=== PATIENT | female | born 1940 | race Caucasian/White ===

== ENCOUNTER 2016-11-07 08:07 | Day surgery (SDC) | payer OTHER ==
[~2016-11-07] VITALS: Ht 160 cm; Wt 96.0 kg
[~2016-11-07 08:07] MED LIST: ALENDRONATE SOD70 MG PO; DAILY VALUE1 EACH PO; FLOVENT DISKUS1 DISK IH; GARLIC1000 MG PO; GERD MED PO; HYDROCHLOROTHIA25 MG PO; LEVOTHYROXINE125 MCG PO; LISINOPRIL5 MG PO; LO-DOSE ASPIRIN81 M2 PO; TOPROL XL25 MG PO; VENTOLIN HFA18 GM IH
== END 2016-11-07 10:30 | disposition home or self-care (01) ==
LOC: CATH 08:07
DX: C50.912 Malignant neoplasm of unspecified site of left female breast (principal); I87.8 Other specified disorders of veins; J44.9 Chronic obstructive pulmonary disease, unspecified; J45.909 Unspecified asthma, uncomplicated; I10 Essential (primary) hypertension; Z79.82 Long term (current) use of aspirin; Z82.49 Family history of ischemic heart disease and other diseases of the circulatory system
CPT/HCPCS: C1751; C1894; J0690; J1644; J2250; J3010; S0020

== ENCOUNTER 2017-01-30 15:40 | Emergency (ER) | payer OTHER ==
[~2017-01-30] VITALS: Ht 160 cm; Wt 93.2 kg
[~2017-01-30 15:40] MED LIST changes: +LASIX20 MG PO; +RANITIDINE HCL150 MG PO
[2017-01-30 16:47] LABS: EOSINOPHIL (%) 0.6 % (0-5); EOSINOPHIL COUNT 0.1 K/uL (0-0.3); HEMATOCRIT 37.6 % (36.0-46.0); IMMATURE GRANULOCYTE (%) 0.5 % (0.0-0.7); IMMATURE GRANULOCYTE COUNT 0.1 K/uL; INSTRUMENT ABS NEUTROPHIL CT 5.2 K/uL; LYMPHOCYTE COUNT 3.3 K/uL (1.0-2.8); MONOCYTE (%) 8.7 % (3-12); MONOCYTE COUNT 0.8 K/uL (0-0.8); NEUTROPHIL (%) 55.3 % (45-76); NEUTROPHIL COUNT 5.2 K/uL (1.8-6.4); PLATELET COUNT 254 K/uL (156-360); RBC DIS.WIDTH-CV 14.6 % (11.8-14.6); RBC DIS.WIDTH-SD 50.5 % (39-53); WHITE BLOOD COUNT 9.5 K/uL (4.1-10.2)
[2017-01-30 16:53] LABS: INTER. NORMALIZED RATIO 1.2; PROTHROMBIN TIME 12.7 SEC (10.2-12.9)
[2017-01-30 16:56] LABS: PTT 29.4 SEC (25-37)
[2017-01-30 16:57] LABS: CHLORIDE 101 mEq/L (99-109); POTASSIUM 4.2 mEq/L (3.7-5.4); SODIUM 137 mEq/L (136-147)
[2017-01-30 16:59] LABS: GLUCOSE 102 mg/dL (70-99)
[2017-01-30 17:00] LABS: ANION GAP 10 MEQ/L (2-14)
[2017-01-30 17:01] LABS: TOTAL BILIRUBIN 0.7 mg/dL (0.0-1.0)
[2017-01-30 17:02] LABS: ALKALINE PHOSPHATASE 71 IU/L (3-129)
[2017-01-30 17:03] LABS: GFR ESTIMATE (CALCULATED) > 59 mL/min/
[2017-01-30 17:04] LABS: UREA NITROGEN (BUN) 14 mg/dL (9-23)
[2017-01-30 17:09] LABS: TROP-I INTERPRETATION NEGATIVE; TROPONIN-I 0.01 ng/mL (0.0-0.30)
[2017-01-30 17:46] LABS: ADD MIUA? YES; BILIRUBIN NEGATIVE; BLOOD NEGATIVE; COLOR STRAW ((YELLOW)); GLUCOSE (STRIP) NEGATIVE; KETONES NEGATIVE; LEUKOCYTES TRACE; NITRITE NEGATIVE; PROTEIN (STRIP) NEGATIVE; SPECIFIC GRAVITY 1.004 (1.000-1.030); UROBILINOGEN 0.2 MG/DL (0.2-1.0)
[2017-01-30 17:50] LABS: BACTERIA RARE /HPF; EPITHELIAL CELLS RARE /HPF; MUCUS TRACE /LPF; RED BLOOD CELLS 0-5 /HPF (0-5); UCUL ADDED? NO; WHITE BLOOD CELLS 0-5 /HPF (0-5)
[2017-01-30] MEDS ORDERED: LIDODERM 5% P1 PATCH TD (19:55)
[2017-01-30 20:16] VITALS: BP 145/64
== END 2017-01-30 20:18 | disposition home or self-care (01) ==
LOC: EME 15:40
PROVIDERS: Emergency Medicine
DX: M19.90 Unspecified osteoarthritis, unspecified site (principal); J32.9 Chronic sinusitis, unspecified; M54.2 Cervicalgia; J44.9 Chronic obstructive pulmonary disease, unspecified; K21.9 Gastro-esophageal reflux disease without esophagitis; Z79.82 Long term (current) use of aspirin
CPT/HCPCS: 70498; 71020; 80053; 81003; 83605; 83880; 84484; 85025; 85610; 85730; 93005; 99281; 99285

== ENCOUNTER 2017-11-24 10:08 | Day surgery (SDC) | payer OTHER ==
[~2017-11-24] VITALS: Ht 160 cm; Wt 88.5 kg
[~2017-11-24 10:08] MED LIST changes: +ADULT ASPIRIN81 MG PO; +LIDODERM 5% P1 PATCH TD; +LOPRESSOR25 MG PO; +OSTEO BI-FLEX1 EAC1 PO; +POTASSIUM CHLO20 ME2 PO; +ZESTRIL5 MG PO
== END 2017-11-24 17:50 | disposition home or self-care (01) ==
LOC: CATH 10:08
DX: I25.10 Atherosclerotic heart disease of native coronary artery without angina pectoris (principal); I11.9 Hypertensive heart disease without heart failure; E78.5 Hyperlipidemia, unspecified; I49.3 Ventricular premature depolarization; I77.810 Thoracic aortic ectasia; E03.9 Hypothyroidism, unspecified; J45.909 Unspecified asthma, uncomplicated; Z79.82 Long term (current) use of aspirin; Z92.3 Personal history of irradiation; Z92.21 Personal history of antineoplastic chemotherapy; Z85.3 Personal history of malignant neoplasm of breast
CPT/HCPCS: 93005; C1769; C1887; J0360; J0461; J1644; J2250; J3010; J7040